=== PATIENT | male | born 1950 | race Caucasian/White ===

== ENCOUNTER 2016-07-25 16:48 | Emergency (ER) | payer OTHER ==
[2016-07-25 17:03] VITALS: RESP 18; TEMP 98.2
[2016-07-25] MEDS ORDERED: Sodium Chloride 0.9% 1,000 ML PRIMARY IV ONE (17:09)
[2016-07-25] MEDS ORDERED: ONDANSETRON 4 MG/2 ML VIAL IVP ONE (17:09)
[2016-07-25] MEDS ORDERED: Pantoprazole Inj 40 MG in Normal Saline Flush 10 ML IVP ONE (17:09)
[2016-07-25] MEDS ORDERED: NORMAL SALINE 10 ML SYRINGE FLUSH IVP PRN (17:09)
[2016-07-25 17:30] LABS: BASOPHILS # (AUTO) 0.02 10*3/UL; BASOPHILS % (AUTO) 0.2 % (0-1); EOSINOPHILS # (AUTO) 0.02 10*3/UL; EOSINOPHILS % (AUTO) 0.2 % (0-8); HEMATOCRIT 41.8 % (42.0-52.0); HEMOGLOBIN 14.1 g/dL (14.0-18.0); LYMPHOCYTES # (AUTO) 1.03 10*3/uL; MEAN CORPUSCULAR HEMOGLOBIN 30.5 PG (27-31); MEAN CORPUSCULAR HGB CONC 33.7 g/dL (33-37); MEAN PLATELET VOLUME 10.2 FL (7.4-12.2); MONOCYTES # (AUTO) 0.88 10*3/UL (0.3-0.8); MONOCYTES % (AUTO) 9.8 % (5-15); NEUTROPHILS % (AUTO) 78.1 % (50-80); RED BLOOD COUNT 4.62 10^6/uL (4.70-6.10)
[2016-07-25 17:33] LABS: PLATELET MORPHOLOGY COMMENT NORMAL MORPHOLOGY (NORM); RBC MORPHOLOGY COMMENT NORMAL MORPHOLOGY (NORM); WBC MORPHOLOGY COMMENT NORMAL MORPHOLOGY (NORM)
[2016-07-25 17:40] LABS: BLOOD UREA NITROGEN 25 mg/dL (7-22); CALCIUM 9.9 mg/dL (8.7-10.7); EST GLOMERULAR FILTRATION > 60 (>60 ml/min/1.73m(2)); LIPASE 135 IU/L (23-300); MAGNESIUM 1.7 mg/dL (1.6-2.4); SERUM ALBUMIN 4.4 g/dL (3.5-4.8)
[2016-07-25 17:44] LABS: C-REACTIVE PROTEIN 1.7 mg/dL (0.0-0.9)
--- NOTE | 2016-07-25 18:37 | DI ---
CT ABDOMEN SCAN WITH IV CONTRAST, 07/25/2016 5:09 PM : Clinical History: Abdominal pain. Previous Exam: 02/04/2013. Scans are performed from the lower lung bases through the liver and kidneys with IV contrast. 60 ml o f Isovue 300 was injected IV. No oral or rectal contrast was ordered. The lung bases are clear. There is diffuse fatty infiltration of the liver. The gallbladder is grossl y normal. There is no abnormality of the spleen, pancreas, and adrenal glands. Both kidneys are alida l in size, shape, position and contour. There is no hydronephrosis or hydroureter. No renal or ureter al calculi are present. There are no abnormal retrocrural or periaortic nodes. No ascites is present. READING: Diffuse fatty infiltration of the liver. The exam is otherwise normal. CT PELVIS SCAN WITH IV CONTRAST, 07/25/2016 5:09 PM: Clinical History: See above. Previous Exam: 02/04/2013. Scans are performed from just superior to the umbilicus to the symphysis pubis with IV contrast. This is the same bolus of contrast used for the CT scans of the abdomen. Scans through the lower abdomen and pelvis show no masses or abnormal fluid collections. There is no adenopathy. The appendix is normal. The small bowel, terminal ileum, and ileocecal valve are normal. The colon is also normal. There are no hernias. The prostate is enlarged. There is osteoporosis. READIN. Normal CT scan of the pelvis. The prostate is enlarged. 2. Osteoporosis.
[2016-07-25 18:55] LABS: BILIRUBIN,URINE MODERATE (NEG); CLARITY,URINE CLEAR (CLEAR); COLOR,URINE YELLOW; GLUCOSE, URINE (UA) NEGATIVE (NEG); NITRATE,URINE NEGATIVE (NEG); OCCULT BLOOD,URINE Trace-intact (NEG); PROTEIN,URINE >300 mg/dl (NEG); UROBILINOGEN,URINE >8.0 EU/dL (0.2)
[2016-07-25 18:57] LABS: RBC,URINE 0-3 /hpf; URINE SAMPLE TYPE VOIDED SPECIMEN; WBC,URINE 0-1
[2016-07-25] MEDS ORDERED: LORazepam 1 MG TABLET PO SCH (19:30)
[2016-07-25] MEDS ORDERED: Ondansetron ODT Tab 8 MG TAB PO SCH (19:30)
--- NOTE | 2016-07-25 23:31 | PDOC ---
Abdomen/Flank HPI - General Chief Complaint: Abdomen Pain Stated Complaint: abd pain, rectal bleeding Date Seen by Provider: 07/25/16 Time Seen by Provider: 17:00 Source: POSITIVE: Patient Exam Limitations: POSITIVE: No limitations Nurse's Notes Reviewed & Considered: Yes - History of Present Illness Initial Comments: The patient is a 66-year-old male who presents to the emergency department with complaints of abdominal pain, nausea and vomiting and a dark stool earlier today. He states that he does have a history of alcohol abuse and generally drinks between a pint and a fifth a day. He states for the past 2 or 3 days he' s had increase in epigastric pain associated with some nausea and vomiting. Earlier today he had a bowel movement which he states was quite dark. He has not had another bowel movement again since then. He has not noticed any blood in his emesis or coffee-ground emesis. He states he has not had a drink since sometime yesterday and that was only a shot or 2 to help with his withdrawal symptoms. He states that he has been somewhat shaky today although not as bad as yesterday. He denies any fevers or chills, urinary symptoms or any other associated complaints. He does not take any prescription medications currently. He has had ulcers in the past related to drinking. In addition he has had previous bypass surgery at the age of 40. - Patient Home Medications Home Medications: Home Medications Lorazepam [Ativan] 1 mg PO Q4H PRN #10 tablet 07/25/16 Omeprazole 20 mg PO BID #30 cap 07/25/16 Ondansetron Odt [Zofran Odt] 8 mg PO Q6H PRN #6 tab.rapdis 07/25/16 - Patient Allergies Allergies/Adverse Reactions: Allergies Allergy/AdvReac Type Severity Reaction Status Date / Time oxycodone [Oxycodone] Allergy ITCHING Verified 07/25/16 16:57 Past Medical History - heen HEENT History: Hard of Hearing, Dentures/Partials Cardiovascular History: Angina, CAD, Other (please comment) Additional Cardiovasular History: CABGx1 Respiratory History: Denies History Gastrointestinal History: Gallbladder Disease Additional Gastrointestinal History: GB REMOVED Genitourinary History: Denies History Endocrine History: Denies History Musculoskeletal History: Back Injury Prosthesis or Implant: No Additional Musculoskeletal History: C-SPINE FUSION Neurological History: Denies History Blood Disorders: Denies History Psychiatric History: Denies History Additional Psychiatric History: DTS History of Sexually Transmitted Diseases: No Male Reproductive History: Denies History Cancer History: Denies History In Past Year Been Physically Harmed or Verbally Threatened: No History of MDRO: No History of Other Communicable Diseases: No Tobacco Use: Current Every Day Smoker Alcohol Use: Heavy Type of alcohol normally used: Hard Liquor How much alcohol do you normally drink a day?: 1 pt to 1/5th daily Substance Use Type: None Previous Surgical History: Yes Type / Date of Surgery: cabg, cervical fusion Anesthesia Reactions: No Malignant Hyperthermia: No Significant Family History: No pertinent family hx Additional Family History: unknown Past Medical History Reviewed: Reviewed - No Changes ROS - Limitations ROS Limitations: No Limitations Constitution: DENIES: Chills, Fever Cardiovascular: DENIES: Chest Pain, Heart Palpitations, Edema Respiratory: REPORTS: Denies Resp Symptoms Neurological: REPORTS: Denies Neuro Symptoms, Other (Somewhat shaky). DENIES: Seizure Activity Gastrointestinal: REPORTS: Abdominal Pain, Nausea, Vomitting, Black Stools. DENIES: Bloody Stools Musculoskeletal: REPORTS: Denies MS Symptoms Genitourinary: REPORTS: Denies Symptoms Eyes: REPORTS: Denies Symptoms ENT: REPORTS: Denies Symptoms Skin: DENIES: Rash Abdominal/Flank Pain PE - General Appearance General Appearance: POSITIVE: Alert, Cooperative, No Acute Distress - HEENT HEENT: POSITIVE: Head Inspection Nml, Eyes Inspection Nml, Ears Inspection Nml, Nose Inspection Nml, Pharynx Inspect. Nml - Neck Neck: NEGATIVE: Normal Inspection, Lymphadenopathy - Respiratory Respiratory: POSITIVE: No Respiratory Distress, Breath Sounds Normal - Cardiovascular Cardiovascular: POSITIVE: Regular Rate and Rhythm, Heart Sounds Normal Peripheral Pulses: Dorsalis-pedis (R): 2+, Dorsalis-pedis (L): 2+ - Abdomen Abdomen: Soft: (All Quadrants), Normal Bowel Sounds: (All Quadrants), No Guarding: (All Quadrants), No Rebound: (All Quadrants), No Distention: (All Quadrants) Additional Abdominal Details: He does have some tenderness in the epigastric region without guarding or rebound tenderness, no palpable mass. - Back Back: POSITIVE: Normal Inspection - Skin Skin: POSITIVE: Intact, No Rash - Extremities Extremity: Normal ROM: (All Extremities), Normal Inspection: (All Extremities) - Neurological Neurological: POSITIVE: Oriented X3, Motor Normal, Sensation Normal, Other ( Somewhat shaky with motor activity) Abdomen Progress - Results Reviewed by me Xrays/CTs/US Reviewed by me: Yes Discussed with Radiologist: Yes Radiology Findings: CT scan reveals somewhat enlarged liver consistent with fatty liver per radiologist, no other acute findings. Lab Results Reviewed: Yes Lab Results:: Laboratory Results 07/25/16 07/25/16 Range/Units 17:27 18:52 WBC 8.97 (4.8-10.8) 10^3/uL RBC 4.62 L (4.70-6.10) 10^6/uL Hgb 14.1 (14.0-18.0) g/dL Hct 41.8 L (42.0-52.0) % MCV 90.5 H (80-90) FL MCH 30.5 (27-31) PG MCHC 33.7 (33-37) g/dL RDW Std Deviation 55.2 H (39-50) fL RDW Coeff of Faustino 17.3 H (11.5-14.5) % Plt Count 151 (140-350) 10*3/uL MPV 10.2 (7.4-12.2) FL Immature Gran % (Auto) 0.2 (0-5) % Neut % (Auto) 78.1 (50-80) % Lymph % (Auto) 11.5 (10-50) % Kay % (Auto) 9.8 (5-15) % Eos % (Auto) 0.2 (0-8) % Baso % (Auto) 0.2 (0-1) % Immature Gran # (Auto) 0.02 10*3/UL Neut # (Auto) 7.00 10*3/UL Lymph # (Auto) 1.03 10*3/uL Kay # (Auto) 0.88 H (0.3-0.8) 10*3/UL Eos # (Auto) 0.02 10*3/UL Baso # (Auto) 0.02 10*3/UL WBC Morphology Comment Normal morphology (NORM) Plt Morphology Comment Normal morphology (NORM) RBC Morph Comment Normal morphology (NORM) Sodium 137 (135-145) meq/L Potassium 3.1 L (3.8-5.2) meq/L Chloride 96 L (98-112) meq/L Carbon Dioxide 24 (23-33) meq/L Anion Gap 17 (5-20) BUN 25 H (7-22) mg/dL Creatinine 0.5 L (0.70-1.50) mg/dL Estimated GFR > 60 (>60 ml/min/1.73m(2)) BUN/Creatinine Ratio 50.00 H (6-20) Glucose 116 H (78-110) mg/dL Calculated Osmolality 288.0 (267-292) mOsm/kg Calcium 9.9 (8.7-10.7) mg/dL Magnesium 1.7 (1.6-2.4) mg/dL Total Bilirubin 1.2 (0.3-1.2) mg/dL AST 82 H (21-57) IU/L ALT 42 (21-72) IU/L Alkaline Phosphatase 67 (38-126) IU/L C-Reactive Protein 1.7 H (0.0-0.9) mg/dL Total Protein 7.9 (6.1-8.0) g/dL Albumin 4.4 (3.5-4.8) g/dL Globulin 3.5 (2.50-4.10) g/dL Albumin/Globulin Ratio 1.20 L (1.3-2.0) mg/g Amylase 101 (30-110) U/L Lipase 135 (23-300) IU/L Ur Collection Type Voided specimen Urine Color Yellow Urine Clarity Clear (CLEAR) Urine pH 7.0 (5.0-8.5) Ur Specific [place] 1.015 (1.005-1.030) Urine Protein >300 (NEG) mg/dl Urine Glucose (UA) Negative (NEG) mg/dL Urine Ketones 40 (NEG) Urine Occult Blood Trace-intact H (NEG) Urine Nitrate Negative (NEG) Urine Bilirubin Moderate (NEG) Urine Urobilinogen >8.0 (0.2) EU/dL Ur Leukocyte Esterase Negative (NEG) Urine RBC 0-3 (NONE) /hpf Urine WBC 0-1 (NONE) Ur Squamous Epith Cells None (NONE) Ur Renal Epithelial Cell None (NONE) Urine Crystals None Urine Bacteria None (NONE) Urine Casts None (NONE) Urine Mucus Many (NONE) Urine Trichomonas None (NONE) Urine Yeast None (NONE) Ur Culture Indicated? Culture not set Serum Alcohol < 10 (0-10) mg/dL - Patient's Progress MDM / ED Course: Shortly after arrival an IV was established and the patient did receive a 1 L bolus of normal saline. In addition he received 40 mg of Zofran and 2 mg of Ativan IV. He was feeling significantly better. I did do a rectal exam in his stool was brown however was heme positive. He remained hemodynamically stable and had no further emesis or stool here in the emergency department. At this point his epigastric pain and associated symptoms are most consistent with gastritis or ulcer. He may have had some bleeding into the GI tract however it does not appear clinically that he is having ongoing bleeding as he has had no further emesis or stool. He does exhibit some mild withdrawal symptoms which have improved with administration of Ativan. I did discuss these findings with the patient and recommended that the patient be admitted to the hospital for continued treatment and monitoring. He was reluctant to this however did agree to be admitted. I subsequently contacted Dr. Rodriguez. Because of his history of alcohol abuse and concern for potential varices he recommended that the patient be admitted in [place]. This was discussed with the patient and he did not want to be admitted to the hospital in [place]. At this point his symptoms are consistent with alcoholic gastritis or ulcer. I do not think he has any ongoing bleeding at this point. It was decided that he could try to be treated as an outpatient with antiacid medicines as long as he stayed with family for the next couple of days. He agreed to do this. He was going to stay with his family [place] and if his symptoms worsened he stated he would go to the emergency room in [place]. He was started on omeprazole 20 mg twice a day. He was also given prescriptions for Zofran as needed for nausea as well as Ativan as needed for withdrawal symptoms. He is advised return to the emergency room if he develops increased abdominal pain, increased vomiting or vomiting of blood , continued blood in the stool or black stools, weakness, worsening withdrawal symptoms, any worsening or change in symptoms. He is advised follow-up with primary care in 3-5 days. - Consult Counseled: POSITIVE: Patient, Family, RE: Lab Results, RE: Radiology Results, RE : DX, RE: Need for F/U Patient Care Time - Estimated PCT Patient Care Time (In Minutes): 45 Vital Signs - VS Reviewed Vital Signs Reviewed: Yes Discharge Clinical Impression: Gastritis, Alcohol withdrawal syndrome Discharge Disposition: Discharged to Home Condition: Stable Prescriptions / Orders: Lorazepam [Ativan] 1 mg PO Q4H PRN #10 tablet PRN Reason: Withdrawal Symptoms Omeprazole 20 mg PO BID #30 cap Ondansetron Odt [Zofran Odt] 8 mg PO Q6H PRN #6 tab.rapdis PRN Reason: Nausea / Vomiting Patient Instructions Given at Discharge: Gastritis (ED), Alcohol Withdrawal (ED ) Additional Instructions: You likely have gastritis or an ulcer in the stomach causing her pain nausea and the dark stool. Recommend omeprazole 20 mg twice a day for at least 2 weeks. Recommend limiting alcohol and caffeine intake, limit aspirin or ibuprofen use. You have also been prescribed Zofran 8 mg every 6 hours as needed for nausea. Recommend bland diet and clear liquids until feeling better. You do have some component of alcohol withdrawal. You have been prescribed Ativan 1 mg every 4-6 hours as needed for withdrawal symptoms. Return to the emergency room if worsening withdrawal, vomiting or passing blood in the stool, increased pain, fever, any worsening or change in symptoms. Recommend follow-up with primary care in 3-5 days. Follow Up With: NONE,NONE [Primary Care Provider] -
== END 2016-07-25 19:40 | disposition home or self-care (01) ==
LOC: ER 16:48
DX: K29.00 Acute gastritis without bleeding (principal); F10.239 Alcohol dependence with withdrawal, unspecified; R11.2 Nausea with vomiting, unspecified; R10.13 Epigastric pain; M81.0 Age-related osteoporosis without current pathological fracture
CPT/HCPCS: 74177; 80053; 80320; 81001; 81003; 82150; 83690; 83735; 85025; 86140; 96361; 96374; 96375; 99283; 99284; Q0162; J2405; J3490; J7030

== ENCOUNTER → 2016-07-27 | Outpatient (CLI) | payer OTHER | LOC: MMPC 09:00 | PROVIDERS: ATTEND Family Medicine | DX: K92.1 Melena (principal); F10.10 Alcohol abuse, uncomplicated; R03.0 Elevated blood-pressure reading, without diagnosis of hypertension; I25.810 Atherosclerosis of coronary artery bypass graft(s) without angina pectoris | CPT/HCPCS: 99214; G0463 ==

== ENCOUNTER → 2016-08-09 | Outpatient (CLI) | payer OTHER | LOC: MMPC 09:00 | PROVIDERS: ATTEND Family Medicine | DX: R59.1 Generalized enlarged lymph nodes (principal); I25.810 Atherosclerosis of coronary artery bypass graft(s) without angina pectoris; I10 Essential (primary) hypertension | CPT/HCPCS: 99214; G0463 ==

== ENCOUNTER → 2016-08-23 | Outpatient (CLI) | payer OTHER | LOC: MMPC 09:00 | PROVIDERS: ATTEND Family Medicine | DX: R59.1 Generalized enlarged lymph nodes (principal) | CPT/HCPCS: 99212; G0463 ==

== ENCOUNTER → 2016-08-28 | Outpatient (CLI) | payer OTHER | LOC: MMPC 11:11 | PROVIDERS: ATTEND Surgery | DX: D11.9 Benign neoplasm of major salivary gland, unspecified (principal) | CPT/HCPCS: 99201; G0463 ==